=== PATIENT | male | born 1985 | race African-American/Black ===

== ENCOUNTER → 2016-06-20 | Outpatient (CLI) | payer BC ==
[2016-06-20 18:57] LABS: ALT 65 U/L (21-72); AST 35 U/L (17-59); Alkaline Phosphatase 57 U/L (38-126); Anion Gap 11 mmol/L; Blood Urea Nitrogen 15 mg/dL (9-20); Calcium 9.6 mg/dL (8.4-10.2); Carbon Dioxide 29 mmol/L (22-30); Chloride 104 mmol/L (98-107); Cholesterol 228 mg/dL (<200); Glucose 92 mg/dL (74-99); HDL Cholesterol 61 mg/dL (40-60); Non-African American GFR(MDRD) >60 (>60 ml/min/1.73 sqM); Sodium 144 mmol/L (137-145); Total Bilirubin 0.7 mg/dL (0.2-1.3); Total Protein 8.2 g/dL (6.3-8.2); Triglycerides 84 mg/dL (<150)
[2016-06-20 19:03] LABS: Basophils % (A) 1 %; CH 30.5; CHCM 34.2; Eosinophils # (A) 0.5 k/uL (0-0.7); Eosinophils % (A) 7 %; HCT 54.2 % (39.0-53.0); HDW 2.39; HGB 17.9 gm/dL (13.0-17.5); Luc # (Auto) 0.17; Luc % (Auto) 2; Lymphocytes # (A) 2.2 k/uL (1.0-4.8); Lymphocytes % (A) 30 %; MCH 29.6 pg (25.0-35.0); MCHC 33.1 g/dL (31.0-37.0); MCV 89.5 fL (80.0-100.0); Mean Platelet Volume 7.3; Monocytes # (A) 0.5 k/uL (0-1.0); Monocytes % (A) 7 %; Neutrophils # (A) 3.9 k/uL (1.3-7.7); Neutrophils % (A) 54 %; RBC 6.05 m/uL (4.30-5.90); RDW 12.9 % (11.5-15.5); WBC 7.2 k/uL (3.8-10.6); WBC (Perox) 7.04
== END ==
LOC: MMGSC 12:00
PROVIDERS: ATTEND Family Medicine
DX: Z00.00 Encounter for general adult medical examination without abnormal findings (principal)
CPT/HCPCS: 36415; 80053; 80061; 84439; 84443; 85025

== ENCOUNTER → 2016-07-07 | Outpatient (CLI) | payer BC | END | disposition home or self-care (01) | LOC: PTMAIN 11:58 | PROVIDERS: ATTEND Otolaryngology | DX: J37.0 Chronic laryngitis (principal); J38.3 Other diseases of vocal cords; K31.9 Disease of stomach and duodenum, unspecified; Z79.899 Other long term (current) drug therapy | CPT/HCPCS: 31579 ==

== ENCOUNTER 2016-07-24 08:58 | Day surgery (SDC) | payer BC ==
[2016-07-20 15:49] VITALS: BMI 28.0
--- NOTE | 2016-07-24 05:24 | HP ---
DATE OF ADMISSION: Chief complaint is chronic laryngitis and lesion of the left true vocal cord. HISTORY OF PRESENT ILLNESS: This patient is a pleasant 31-year-old male who was recently seen in my office complaining of having intermittent hoarseness which has been going on for approximately 7 months. The patient is a nonsmoker and has never used any tobacco products. He works at the [employer] in [place]. He is also a known asthmatic. At the time that he was seen in my office, clinical examination which included an indirect laryngoscopy and also a videostroboscopy revealed evidence of a polypoid lesion of the left true vocal cord. It was recommended that the patient undergo a biopsy and CO2 laser removal of this lesion under general anesthesia. Past medical history reveals he has allergies to REGLAN. Current medications include Prilosec, Ventolin and Flonase. He has not had any previous surgeries. There is no history of diabetes mellitus or hypertension, but he does have a history of asthma. REVIEW OF SYSTEMS: Positive with respect to respiratory system for asthma and with respect to the gastrointestinal system for GERD. The remainder of the review of systems is essentially unremarkable. PHYSICAL EXAMINATION: This patient is a 31-year-old male who is alert and cooperative. HEENT EXAMINATION: Patient is normocephalic. Tympanic membranes are normal. Middle ear spaces are free of any fluid or infection. Pupils equal, round, reactive light and accommodation. Extraocular movements are within normal limits. Intranasal examination reveals moderate to severe septal deviation with compensatory hypertrophy of the inferior turbinates and moderate amount of mucus on mucous membranes draining down the posterior pharynx. Examination of oropharynx and larynx is as described above in the history of present illness and will not be repeated here. Palpation of the neck, cranial nerves 2 through 12 and remainder of the head and neck exam are all within normal limits. CHEST/CARDIOVASCULAR: Lung kay are clear to percussion and auscultation. Patient is in regular sinus rhythm. S1 and S2 are present without any murmurs, S3s or S4s. Peripheral pulses are bilaterally symmetrical and within normal limits. ABDOMEN: There is no evidence of any masses, megaly or tenderness. The abdomen is soft. Skin is unremarkable. Musculoskeletal and neurological are within normal limits. RECTAL EXAM: The rectal exam is deferred at this time because the patient has this done on a regular basis at his family physician's office. The remainder of physical exam is essentially unremarkable. IMPRESSION: Chronic laryngitis with lesion of the left true vocal cord. PLAN: The patient is scheduled undergo a suspension microlaryngoscopy with biopsy and CO2 laser of lesion of the left true vocal cord under general anesthesia in a.m. ATTENTION RNS IN THE PRESURGICAL AREA: I have not ordered any presurgical prophylactic antibiotics for this patient. If the pharmacy department sends any presurgical prophylactic antibiotics to the presurgical area for this patient, that order should be canceled, the medication returned to pharmacy and make sure that the patient's account is credited appropriately. The only medication that I have ordered for this patient to receive before surgery is 1000 mg of Ofirmev IV, to be given once an intravenous line has been established. I have explained the operation/procedure to the patient, including the risks, benefits, side effects, alternative therapies (including not receiving the proposed treatment or service), the likelihood of the patient achieving his/her goals, and potential recuperation problems for the procedure/sedation/analgesia, as well as any blood products, if indicated. I also explained to the patient the risks, benefits, and side effects of the alternatives, as well as the risks related to not receiving the proposed procedure, care treatment or services.
[~2016-07-24 08:58] MED LIST: DEXAMETHASONE SOD PHOSPHATE 10 MG/ML 1 ML VIAL IV ONE; HYDROmorphone 1 MG/ML 1 ML SYRINGE IVP PRN; LACTATED RINGERS 1,000 ML IV SCH; LIDOCAINE 1% 20 ML VIAL (10MG/ML) FOR IV START INTRADERMA PRN; ONDANSETRON 4 MG/2 ML VIAL IVP ONE; Pre Op ABX Message 1 EACH MISC MISCELLANE ONE; SCOPOLAMINE 1.5MG/72HR PATCH TRANSDERM ONE
[2016-07-24] MEDS ORDERED: ACETAMINOPHEN IV (For NPO) 1,000 MG in EMPTY BAG 1 BAG IVPB ONE (10:15)
[2016-07-24] MEDS ORDERED: ROCURONIUM BROMIDE 10 MG/ML 10 ML VIAL IV ONE (11:18)
[2016-07-24] MEDS ORDERED: SUCCINYLCHOLINE CHLORIDE 100 MG/5 ML SYR IV ONE (11:18)
[2016-07-24] MEDS ORDERED: DEXAMETHASONE SOD PHOS (MDV) 100 MG/10 ML VIAL ONE (11:18)
[2016-07-24] MEDS ORDERED: PROPOFOL 10 MG/ML 20 ML VIAL IV ONE (11:18)
[2016-07-24] MEDS ORDERED: fentaNYL (PF) 50 MCG/ML 2 ML AMP ONE (11:18)
[2016-07-24] MEDS ORDERED: NEOSTIGMINE 1 MG/ML 10 ML VIAL ONE (11:18)
[2016-07-24] MEDS ORDERED: MIDAZOLAM 2 MG/2 ML VIAL ONE (11:18)
[2016-07-24] MEDS ORDERED: GLYCOPYRROLATE 0.2 MG/ML 2 ML VIAL ONE (11:18)
[2016-07-24] MEDS ORDERED: LIDOCAINE 1% INJ 10MG/ML (20 ML MDV) ONE (11:18)
[2016-07-24] MEDS ORDERED: HYDROmorphone (PF) 1 MG/ML ONE (11:18)
[2016-07-24] MEDS ORDERED: LACTATED RINGERS 1,000 ML IV ONE ×2 (12:00→14:29)
[2016-07-24 12:51] VITALS: TEMP 97.4
[2016-07-24] MEDS ORDERED: PROMETHAZINE INJ 25 MG/ML 1 ML VIAL IVPB ONE (14:27)
[2016-07-24 15:01] VITALS: BP 102/64; PULSE 74; RESP 18
--- NOTE | 2016-07-25 08:43 | OP ---
DATE OF SERVICE: 07/24/2016 SURGEON: MELI PHAN MD ART MODEL: PREOPERATIVE DIAGNOSIS: Suspicious polypoid lesion of the left true vocal cord. POSTOPERATIVE DIAGNOSIS: Suspicious polypoid lesion of the left true vocal cord, final pathology is pending. OPERATION: Suspension microlaryngoscopy with biopsy and laser of a polypoid lesion of the left true vocal cord. ANESTHESIA: General. ESTIMATED BLOOD LOSS: SPECIMENS REMOVED: COMPLICATIONS: None. OPERATIVE FINDINGS: DESCRIPTION OF PROCEDURE: Patient was placed on the operating table in the supine position. After uneventful induction and endotracheal intubation, satisfactory general anesthesia was obtained. It is to be noted that because of the patient's receding chin line, he was somewhat difficult to the scope, so therefore care was taken so as not to cause any intraoral injuries. Next, the laryngoscope was introduced into the patient's oropharynx and the entire hypopharynx, including the right and left piriform sinus, the base of tongue, valleculae and epiglottis, were inspected and found to be free of any suspicious lesions. Next, the tip of the laryngoscope was placed at the laryngeal introitus and advanced in the anterior commissure, the Lewy apparatus was attached to the handle of the laryngoscope and the laryngoscope itself was suspended on the patient's chest. Next, using the Zeiss operating microscope and under magnified visualization, one could see that there was a large polypoid lesion arising from the anterior one-third of the left true vocal cord. Therefore this mass lesion was biopsied twice using a pair of large up-biting microlaryngeal forceps. The specimen was sent to pathology for permanent sectioning. The remaining portion/base of the lesion was then vaporized using CO2 laser on the appropriate settings. The patient was given a total of 10 mg of Decadron intraoperatively to reduce any postoperative edema. At this point, the procedure was terminated. There were no intraoperative complications. The patient tolerated the procedure well and was returned to the recovery room in satisfactory condition.
== END 2016-07-24 15:19 | disposition home or self-care (01) ==
LOC: OR 08:58
PROVIDERS: ATTEND Otolaryngology
DX: C32.0 Malignant neoplasm of glottis (principal); J37.0 Chronic laryngitis; K21.9 Gastro-esophageal reflux disease without esophagitis; J45.909 Unspecified asthma, uncomplicated; Z79.899 Other long term (current) drug therapy; Z79.891 Long term (current) use of opiate analgesic; Z88.8 Allergy status to other drugs, medicaments and biological substances
CPT/HCPCS: 31541; 88305; J2250; J1100 ×2; J2550; J2710; J2405; J2001; J3010; J1170; J0131; J0330; J2704

== ENCOUNTER 2016-08-11 08:56 | Day surgery (SDC) | payer BC ==
[2016-08-08 09:14] VITALS: BMI 28.0
--- NOTE | 2016-08-10 23:48 | HP ---
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 HISTORY OF PRESENT ILLNESS: The patient is a 31-year-old male who underwent a suspension microlaryngoscopy with biopsy of the left true vocal cord on 07/24/2016. 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 The patient does not have a history of any type of tobacco use. He is currently undergoing evaluation for full course radiation treatment for his lesion. It was discussed with the patient that because there is a significant incidence of patients with carcinoma of the head and neck developing a secondary synchronous primary malignancy elsewhere in the aerodigestive tract, that it is recommended he undergo a triple endoscopy involving a suspension microlaryngoscopy, rigid bronchoscopy and rigid esophagoscopy under general anesthesia. Past medical history is unchanged since his last physical examination. He has a KNOWN ALLERGY TO REGLAN. Current medications include: 1. Prilosec. 2. Flonase nasal spray. 3. Ventolin. He has a history of asthma, but no history of diabetes mellitus or hypertension. Previous surgeries include suspension microlaryngoscopy with biopsy/CO2 laser of the left true vocal cord. Review of systems is positive for respiratory system, in that the patient is known be an asthmatic. With respect to the gastrointestinal system, he is known to have GERD. The remainder of the review of systems is unremarkable. PHYSICAL EXAMINATION: This patient is a pleasant 31-year-old male who is alert and cooperative. HEENT EXAMINATION: Patient is normocephalic. Tympanic membranes are normal. Middle ear spaces are free of any fluid or infection. Pupils are equal, round and reactive to light and accommodation. Extraocular movements are within normal limits. Intranasal examination, examination of the oropharynx, cranial nerves II through XII and the remainder of the head and neck exam are essentially within normal limits. CHEST/CARDIOVASCULAR: Both lung kay are clear to percussion and auscultation. The patient is in regular sinus rhythm. S1 and S2 are present without evidence of any murmurs. Peripheral pulses are bilaterally symmetrical and within normal limits. ABDOMEN: There is no evidence of masses, megaly or tenderness. The abdomen is soft. Skin is unremarkable. Musculoskeletal and neurological are within normal limits. Rectal exam is deferred at this time because the patient has this done on a regular basis at his family physician's office. The remainder of physical exam is unremarkable. 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 PLAN: The patient is scheduled to undergo a triple endoscopy involving a suspension microlaryngoscopy, rigid bronchoscopy and rigid esophagoscopy under general anesthesia in the morning. I have explained the operation/procedure to the patient, including the risks, benefits, side effects, alternative therapies (including not receiving the proposed treatment or service), the likelihood of the patient achieving his/her goals, and potential recuperation problems for the procedure/sedation/analgesia, as well as any blood products, if indicated. I also explained to the patient the risks, benefits, and side effects of the alternatives, as well as the risks related to not receiving the proposed procedure, care treatment or services. ATTENTION RNS IN THE PRE-SURGICAL AREA: I have not ordered any pre-surgical prophylactic antibiotics for this patient. If the pharmacy department sends any pre-surgical prophylactic antibiotics to the pre-surgical area for this patient, they should be returned immediately, and make sure that the patient's account is credited appropriately. The only medication that I have ordered for this patient to receive in the pre-surgical area is Ofirmev 1000 mg IV, once an intravenous line has been established.
[~2016-08-11 08:56] MED LIST changes: -ONDANSETRON 4 MG/2 ML VIAL IVP ONE
[2016-08-11 09:20] VITALS: RESP 16
[2016-08-11] MEDS: ONDANSETRON 4 MG/2 ML VIAL IVP ONE ×2 (09:26→13:27)
[2016-08-11] MEDS ORDERED: ACETAMINOPHEN IV (For NPO) 1,000 MG in EMPTY BAG 1 BAG IVPB ONE (09:45)
[2016-08-11] MEDS ORDERED: ROCURONIUM BROMIDE 10 MG/ML 10 ML VIAL IV ONE (10:25)
[2016-08-11] MEDS ORDERED: fentaNYL (PF) 50 MCG/ML 2 ML AMP ONE (10:25)
[2016-08-11] MEDS ORDERED: HYDROmorphone (PF) 1 MG/ML ONE (10:25)
[2016-08-11] MEDS ORDERED: LIDOCAINE 1% INJ 10MG/ML (20 ML MDV) ONE (10:25)
[2016-08-11] MEDS ORDERED: MIDAZOLAM 2 MG/2 ML VIAL ONE (10:25)
[2016-08-11] MEDS ORDERED: SUCCINYLCHOLINE CHLORIDE 100 MG/5 ML SYR IV ONE (10:25)
[2016-08-11 11:29] VITALS: TEMP 98.6
[2016-08-11] MEDS ORDERED: LACTATED RINGERS 1,000 ML IV ONE (12:50)
[2016-08-11 13:52] VITALS: BP 122/72; PULSE 68
--- NOTE | 2016-08-13 15:11 | OP ---
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 OPERATION: Triple endoscopy: 1. Suspension microlaryngoscopy. 2. Rigid esophagoscopy. 3. Rigid bronchoscopy. ANESTHESIA: General. ESTIMATED BLOOD LOSS: SPECIMENS REMOVED: COMPLICATIONS: None. OPERATIVE FINDINGS: DESCRIPTION OF PROCEDURE: The patient placed on the operating table in the supine position. After uneventful induction and endotracheal intubation, satisfactory general anesthesia was obtained. Next, the patient was draped in the usual and customary fashion and initially the esophagoscopy portion of the procedure was performed. Therefore, using the Joaquin medium esophagoscope, this was introduced into the right corner of the patient's mouth and subsequently passed into the oropharynx down to the posterior pharynx and presented at the laryngeal introitus. Next, using the usual atraumatic method of advancing the tip of the esophagoscope through the esophageal introitus down into the esophagus in a careful atraumatic fashion. The scope was passed down to just above the junction of the cardia of the stomach and esophagus. No suspicious lesions, obstructions, strictures, webs, etc. were noted and the esophagoscope was withdrawn in an atraumatic fashion, that is to say there was absolutely no bleeding. Next, attention was directed towards performing the suspension portion of the procedure and this was done by introducing the laryngoscope, into the oropharynx and the entire hypopharynx, right and left piriform sinus, base of tongue, epiglottis and valleculae were inspected and found to be free of any suspicious lesions. Next, the tip of the laryngoscope was presented at 2 the laryngeal introitus, the Lewy apparatus was attached to the handle of the laryngoscope and the laryngoscope was suspended on the patient's chest in the usual fashion. Next, using the Zeiss operating microscope inspection revealed that the previously biopsied and diagnosed lesion was noted on the anterior third of the left true vocal cord. This lesion was somewhat less bulky than it was previously because of the biopsy material removed. No other suspicious lesions were noted in the larynx or subglottic area. Next, the laryngoscope was withdrawn and the Joaquin sliding laryngoscope was introduced into the patient's oropharynx and presented at the laryngeal introitus. Next, the ventilating Joaquin-Chevalier rigid bronchoscope was passed into the sliding laryngoscope and in the usual fashion was advanced between the true vocal cords as the anesthesia department withdrew the endotracheal tube. Once the scope was passed well beyond the true vocal cords, the anesthesia department attached the anesthesia machine to the side arm of the ventilating bronchoscope and was able to adequately ventilate the patient. The entire trachea was inspected and subsequently the right and left mainstem bronchi were inspected and no suspicious lesions were noted. At this point, the bronchoscope and the sliding laryngoscope were removed. Also removed was a previously inserted mouth/teeth guard from the oropharynx. The patient was given 10 mg of Decadron intraoperatively to reduce any postoperative laryngeal edema or swelling. No biopsies were performed because no suspicious lesions were noted. 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 In addition to this, deep palpation of the patient's neck while on an anesthesia did not reveal any evidence of a suspicious masses, lesions or lymphadenopathy of the neck itself. Again, the entire oropharynx, hypopharynx, larynx and subglottic area, upper trachea, right and left mainstem bronchi, and the upper and lower esophagus was found to be free of any suspicious lesions. The only known lesion found was the lesion of the left true vocal cord. At this point, the procedure was terminated. There were no intraoperative complications. The patient was tolerated the procedure well and was returned to recovery room in satisfactory condition. Again, no biopsy specimens were obtained.
== END 2016-08-11 14:30 | disposition home or self-care (01) ==
LOC: OR 08:56
PROVIDERS: ATTEND Otolaryngology
DX: C32.0 Malignant neoplasm of glottis (principal); K21.9 Gastro-esophageal reflux disease without esophagitis; J45.909 Unspecified asthma, uncomplicated; Z79.899 Other long term (current) drug therapy; Z88.8 Allergy status to other drugs, medicaments and biological substances
CPT/HCPCS: 43191; 31526; 31622; J2250; J1100; J2405; J2001; J3010; J1170; J0131; J0330

== ENCOUNTER → 2017-05-07 | Outpatient (CLI) | payer BC ==
--- NOTE | 2017-05-07 15:38 | CT ---
EXAMINATION TYPE: CT soft tissue neck w con DATE OF EXAM: 05/07/2017 2:35 PM COMPARISON: Prior exam 08/24/2016 HISTORY: History of Lt vocal cord mass CT DLP: 682 mGycm Automated exposure control for dose reduction was used. CONTRAST: CT scan of the neck is performed following with IV Contrast, patient injected with 100 mL of Omnipaqu e 300. Axial images are obtained, coronal and sagittal reformatted images are reviewed. FINDINGS: Airway: No gross abnormality seen. No focal cord mass is evident. Edema is not present at the level o f the arytenoid cartilages, axial image 37 there is some mixed attenuation present bilaterally, small laryngoceles may be present. Parotid/submandibular glands: No gross abnormality seen. Carotid/Vascular Structures: The vertebral artery arises from the transverse aorta, there is a three- vessel arch Osseous Structures: Mild degenerative disc changes are present. Other: Inflammatory changes present within the ethmoid air cells, maxillary sinuses, there may be muc us retention cyst or polyp dependent portion of the left maxillary sinus IMPRESSION: Findings may be posttreatment as described, consider short interval follow-up, direct vi sualization as indicated. Sinus disease.
== END | disposition home or self-care (01) ==
LOC: RADCTMAIN 13:57
PROVIDERS: ATTEND Radiology Radiation Oncology
DX: C32.0 Malignant neoplasm of glottis (principal); Z88.8 Allergy status to other drugs, medicaments and biological substances
CPT/HCPCS: 70491; Q9967

== ENCOUNTER → 2018-01-21 | Outpatient (CLI) | payer BC ==
[2018-01-21 08:35] LABS: Basophils # (A) 0.1 k/uL (0-0.2); Basophils % (A) 1 %; Eosinophils # (A) 0.5 k/uL (0-0.7); Eosinophils % (A) 5 %; HCT 45.1 % (39.0-53.0); HGB 15.4 gm/dL (13.0-17.5); Lymphocytes # (A) 2.3 k/uL (1.0-4.8); Lymphocytes % (A) 23 %; MCH 29.5 pg (25.0-35.0); MCHC 34.1 g/dL (31.0-37.0); MCV 86.5 fL (80.0-100.0); Monocytes # (A) 0.6 k/uL (0-1.0); Monocytes % (A) 6 %; Neutrophils # (A) 6.2 k/uL (1.3-7.7); Neutrophils % (A) 63 %; Platelet Count 226 k/uL (150-450); RBC 5.21 m/uL (4.30-5.90); RDW 12.6 % (11.5-15.5); WBC 9.8 k/uL (3.8-10.6)
[2018-01-21 16:45] LABS: Anion Gap 5.7 mmol/L (4.00-12.00); Calcium 9.4 mg/dL (8.7-10.3); Carbon Dioxide 30.3 mmol/L (21.6-31.8); Potassium 3.5 mmol/L (3.5-5.5)
== END | disposition home or self-care (01) ==
LOC: LABWHC1 07:56
PROVIDERS: ATTEND Radiology Radiation Oncology
DX: C32.0 Malignant neoplasm of glottis (principal); Z92.3 Personal history of irradiation
CPT/HCPCS: 36415; 80048; 84439; 84443; 84481; 85025

== ENCOUNTER → 2020-01-27 | Outpatient (CLI) | payer BC | END | disposition home or self-care (01) | LOC: LABWHC1 16:35 | PROVIDERS: ATTEND Family Medicine | DX: Z20.828 Contact with and (suspected) exposure to other viral communicable diseases (principal) | CPT/HCPCS: U0003; C9803 ==

== ENCOUNTER → 2021-06-22 | Outpatient (CLI) | payer BC | END | disposition home or self-care (01) | LOC: LABWHC1 09:43 | PROVIDERS: ATTEND Internal Medicine Critical Care Medicine | DX: Z53.9 Procedure and treatment not carried out, unspecified reason (principal) ==

== ENCOUNTER 2021-12-02 08:22 | Day surgery (SDC) | payer BC ==
--- NOTE | 2021-12-01 19:32 | HP ---
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 The patient has undergone a full course irradiation and chemotherapy and has responded quite well. He has been seen every 6 months to 12 months, and during his checkups, no evidence of recurrence has been seen. The patient was advised that on his fifth anniversary following his treatment, that I generally prefer to take the patient back to surgery and have a look with the microscope and do a biopsy to make sure that the disease has not returned. He has some hoarseness and has had this intermittently since his irradiation. ALLERGIES: He has an allergy to Reglan. CURRENT MEDICATIONS: Include: 1. Albuterol. 2. Flovent. 3. Flonase. PAST MEDICAL HISTORY: The patient has history of seasonal allergies and asthma. REVIEW OF SYSTEMS: Reveals that the respiratory system is positive for asthma. All of systems are unremarkable. PHYSICAL EXAMINATION: GENERAL: The patient is a 36-year-old male, who was alert and cooperative. HEENT: The patient is normocephalic. Tympanic membranes are normal. Middle ear spaces are free of any fluid or infection. Pupils are equal, round, and reactive to light and accommodation. Extraocular movements are within normal limits. Intranasal examination reveals moderate septal deviation with compensatory hypertrophy of the inferior turbinates and a moderate amount of mucus on the mucous membranes and draining down the posterior pharynx. Examination of the oropharynx including indirect laryngoscopy reveals no evidence of suspicious lesions; however, the patient does have an overhanging epiglottis; and therefore, I am not able to examine the anterior portion of the larynx, and therefore, the anterior portion of the true vocal cords. Palpation of the neck is negative without any neck masses or lymphadenopathy. Cranial nerves 2 through 12 and the remainder of the head and neck exam are unremarkable. CHEST/CARDIOVASCULAR: Both lung kay are clear to percussion and auscultation. The patient is in regular sinus rhythm. S1 and S2 are present without evidence of any murmurs, S3's or S4's. Peripheral pulses are bilaterally symmetrical and within normal limits. ABDOMEN: There is no evidence of any masses, megaly, or tenderness. The abdomen is soft. SKIN: Unremarkable. MUSCULOSKELETAL AND NEUROLOGICAL: All within normal limits. RECTAL: Deferred at this time because the patient has this done on a regular basis at his family physician's office. The remainder of the physical exam is essentially unremarkable. 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 PLAN: The patient is scheduled to undergo a suspension microlaryngoscopy with biopsy of left true vocal cord under general anesthesia in a.m. Attention, RNs in the pre-surgical area: I have not ordered any pre-surgical prophylactic antibiotics for this patient. If the Pharmacy Department sends any pre- surgical prophylactic antibiotics to the pre-surgical area for this patient, please cancel that order and return the medication to the Pharmacy Department. Also, make sure that the patient's account is credited appropriately. I have ordered for this patient to receive 1000 mg of Ofirmev IV to be given once intravenous line has been established. I have discussed the risks, benefits and alternative therapies for the above-mentioned procedure and for both sedation/analgesia as well as necessary blood product administration, if indicated, as they pertain to this patient. The patient has indicated his understanding and acceptance of the risks and procedures discussed. MMODL / IJN: [id number] /
[~2021-12-02 08:22] MED LIST changes: -DEXAMETHASONE SOD PHOSPHATE 10 MG/ML 1 ML VIAL IV ONE; +DEXAMETHASONE SOD PHOSPHATE 4 MG/ML 1 ML VIAL IV ONE; +HYDROmorphone 0.5 MG/0.5 ML SYRINGE IVP PRN; -HYDROmorphone 1 MG/ML 1 ML SYRINGE IVP PRN; -LIDOCAINE 1% 20 ML VIAL (10MG/ML) FOR IV START INTRADERMA PRN; +MIDAZOLAM 2 MG/2 ML VIAL IV PRN; +ONDANSETRON 4 MG/2 ML VIAL IVP ONE; +SCOPOLAMINE 1 MG/72 HR PATCH TRANSDERM ONE; -SCOPOLAMINE 1.5MG/72HR PATCH TRANSDERM ONE
[2021-12-02] MEDS ORDERED: ACETAMINOPHEN IV (For NPO) 1,000 MG in EMPTY BAG 1 BAG IVPB ONE (09:45)
[2021-12-02] MEDS ORDERED: LIDOCAINE 2% INJ 20 MG/ML (2 ML VIAL) ONE (10:40)
[2021-12-02] MEDS ORDERED: SUCCINYLCHOLINE CHLORIDE 200 MG/10 ML VIAL IV ONE (10:40)
[2021-12-02] MEDS ORDERED: GLYCOPYRROLATE 0.2 MG/ML 2 ML VIAL ONE (10:40)
[2021-12-02] MEDS ORDERED: MIDAZOLAM 2 MG/2 ML VIAL ONE (10:40)
[2021-12-02] MEDS ORDERED: PROPOFOL 10 MG/ML 20 ML VIAL IV ONE (10:40)
[2021-12-02] MEDS ORDERED: DEXAMETHASONE SOD PHOS (MDV) 100 MG/10 ML VIAL ONE (10:40)
[2021-12-02] MEDS ORDERED: fentaNYL (PF) 50 MCG/ML 2 ML AMP ONE (10:40)
[2021-12-02] MEDS ORDERED: LACTATED RINGERS 1,000 ML IV ONE (11:05)
[2021-12-02 11:39] VITALS: TEMP 97.1
[2021-12-02 12:59] VITALS: RESP 18
[2021-12-02 13:28] VITALS: BP 124/86; PULSE 91
--- NOTE | 2021-12-04 19:51 | OP ---
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 ANESTHESIA: General. OPERATIVE PROCEDURE: Suspension microlaryngoscopy with biopsy of left true vocal cord. COMPLICATIONS: None. ESTIMATED BLOOD LOSS: Less than 1 mL. DESCRIPTION OF PROCEDURE: The patient was placed on the operating table in the supine position. After uneventful induction and endotracheal intubation, satisfactory general anesthesia was obtained. Next, the patient's head was draped in usual customary fashion. Following this, the laryngoscope was introduced into the patient's oropharynx and the entire hypopharynx including the left and right piriform sinuses, base of tongue, valleculae, and epiglottis were inspected and found to be free of any suspicious lesions. Next, the tip of the laryngoscope was placed at the laryngeal introitus, the Lewy apparatus was attached to the handle of the laryngoscope and the laryngoscope was then suspended on the patient's chest. Next, using the Zeiss operating microscope and under direct magnified vision, inspection of the larynx revealed no suspicious lesions of the left or right true vocal cord. Therefore, using a pair of microlaryngeal up-biting forceps, the area where the previous squamous cell carcinoma had been located was biopsied multiple times. Specimens were sent to pathology in formalin for permanent sectioning. At this point, the procedure was terminated. The patient was given 10 mg of Decadron intraoperatively to reduce any postop laryngeal edema. The patient tolerated the procedure well and was returned to recovery room in satisfactory condition. Final pathology is pending. MMODL / IJN: [id number] /
== END 2021-12-02 14:45 | disposition home or self-care (01) ==
LOC: OR 08:22
PROVIDERS: ATTEND Otolaryngology
DX: C32.0 Malignant neoplasm of glottis (principal); J38.3 Other diseases of vocal cords; F12.90 Cannabis use, unspecified, uncomplicated; J45.909 Unspecified asthma, uncomplicated; Z79.51 Long term (current) use of inhaled steroids; Z88.8 Allergy status to other drugs, medicaments and biological substances
CPT/HCPCS: 88305; 31536; J2250; J0330; J1100 ×2; J2405; J3010; J0131; J2704; J2001